=== PATIENT | male | born 1960 | race Caucasian/White ===

== ENCOUNTER 2018-03-16 13:10 | Inpatient (IN) | payer SELFPAY ==
[~2018-03-16] VITALS: Ht 185.4 cm; Wt 84.5 kg
[2018-03-16] MEDS: METOPROLOL TARTRATE 25 MG TAB PO SCH (00:30)
[2018-03-16 14:00] LABS: BASOPHILS % (AUTO) 0.7 % (0.0-5.0); EOSINOPHILS % (AUTO) 0.6 % (0.0-8.0); HEMATOCRIT 38.8 % (42-54); LYMPHOCYTES % (AUTO) 9.5 % (21.0-51.0); MEAN CORPUSCULAR HEMOGLOBIN 26.2 pg (27.0-33.0); MEAN CORPUSCULAR HGB CONC 32.1 g/dL (32.0-36.0); MEAN CORPUSCULAR VOLUME 81.5 fL (79-99); MONOCYTES % (AUTO) 7.2 % (3.0-13.0); PLATELET COUNT (AUTO) 339 K/uL (130-400); RED BLOOD CELL COUNT(AUTO) 4.76 MIL/uL (4.50-6.20); RED CELL DISTRIBUTION WIDTH 17.9 % (11.0-15.5); WHITE BLOOD COUNT (AUTO) 11.8 K/uL (4.8-10.8)
[2018-03-16] MEDS ORDERED: FUROSEMIDE 10 MG/ML 4ML VIAL ONE (14:04)
[2018-03-16 14:09] LABS: CREATININE 0.9 mg/dL (0.5-1.5); POTASSIUM 4.1 mmol/L (3.5-5.1)
[2018-03-16 14:20] LABS: ALBUMIN 3.1 g/dL (3.5-5.0); BILIRUBIN,TOTAL 1.2 mg/dL (0.2-1.0); TOTAL PROTEIN, SERUM 7.7 g/dL (6.0-8.3)
[2018-03-16 14:37] LABS: INR 1.15 (0.85-1.15); PARTIAL THROMBOPLASTIN TIME 28.2 SEC (26.3-35.5)
[2018-03-16 14:42] LABS: B-TYPE NATRIURETIC PEPTIDE 573 pg/mL (0-100)
[2018-03-16] MEDS ORDERED: IOHEXOL 350 MG/ML 100ML INFUS..BTL IV ONE (16:22)
[2018-03-16] MEDS ORDERED: LEVOFLOXACIN 500 MG/D5W 100 ML 0 ML ONE (17:50)
[2018-03-16] MEDS ORDERED: LEVOFLOXACIN 500 MG/D5W 100 ML 100 ML IV SCH (18:45)
[2018-03-16] MEDS ORDERED: ONDANSETRON HCL 4 MG/2 ML VIAL IV PRN (18:45)
[2018-03-16] MEDS ORDERED: MORPHINE SULFATE 2 MG/ML 1ML SYG IV PRN (18:45)
[2018-03-16] MEDS ORDERED: LEVOFLOXACIN 500 MG/D5W 100 ML 100 ML ONE (19:46)
[2018-03-16] MEDS ORDERED: METOPROLOL TARTRATE 25 MG TAB ONE (19:47)
[2018-03-16] MEDS ORDERED: FUROSEMIDE 10 MG/ML 2ML VIAL IV SCH (20:00)
[2018-03-16] MEDS ORDERED: SODIUM CHLORIDE 0.9% 500ML 500 ML IV ONE (20:10)
[2018-03-16] MEDS ORDERED: METOPROLOL TARTRATE 1 MG/ML 5ML VIAL IV ONE (20:11)
[2018-03-16] MEDS ORDERED: DILTIAZEM 125MG+100 ML NS 125 ML IV SCH (21:00)
[2018-03-16] MEDS ORDERED: SODIUM CHLORIDE 0.9% 100 ML IV ONE (21:34)
[2018-03-16] MEDS ORDERED: AMIODARONE HCL 50 MG/ML 3 ML VIAL ONE (23:26)
[2018-03-16] MEDS ORDERED: SODIUM CHLORIDE 0.9% 1000ML 1,000 ML IV ONE (23:26)
[2018-03-16] MEDS ORDERED: DEXTROSE 5%-WATER 500 ML IV ONE (23:26)
[2018-03-17] VITALS (7 sets, daily range): BP systolic 105–120; BP diastolic 68–86
[2018-03-17] MEDS: IPRATROPIUM/ALBUTEROL SULFATE 3 ML SOLUTION IH SCH ×3 (00:41→11:49)
[2018-03-17] MEDS ORDERED: PHEN177L2 PO (01:23)
[2018-03-17] MEDS ORDERED: ALBU0.63 IH (01:25)
[2018-03-17] MEDS ORDERED: AMIODARONE HCL 150 MG in DEXTROSE 5%-WATER 100 ML IV SCH (03:45)
[2018-03-17] MEDS ORDERED: AMIODARONE HCL 900 MG in DEXTROSE 5%-WATER 500 ML IV SCH (03:45)
[2018-03-17 03:51] LABS: BASOPHILS % (AUTO) 0.7 % (0.0-5.0); EOSINOPHILS % (AUTO) 0.7 % (0.0-8.0); HEMATOCRIT 36.6 % (42-54); LYMPHOCYTES % (AUTO) 11.6 % (21.0-51.0); MEAN CORPUSCULAR HEMOGLOBIN 25.6 pg (27.0-33.0); MEAN CORPUSCULAR HGB CONC 31.7 g/dL (32.0-36.0); MEAN CORPUSCULAR VOLUME 80.8 fL (79-99); MONOCYTES % (AUTO) 8.5 % (3.0-13.0); NEUTROPHILS % (AUTO) 78.5 % (40.0-77.0); PLATELET COUNT (AUTO) 278 K/uL (130-400); RED BLOOD CELL COUNT(AUTO) 4.53 MIL/uL (4.50-6.20); RED CELL DISTRIBUTION WIDTH 18.1 % (11.0-15.5); WHITE BLOOD COUNT (AUTO) 10.7 K/uL (4.8-10.8)
[2018-03-17 04:07] LABS: CREATININE 0.8 mg/dL (0.5-1.5); MAGNESIUM 1.7 mg/dL (1.80-2.40); POTASSIUM 3.9 mmol/L (3.5-5.1)
[2018-03-17] MEDS: FUROSEMIDE 10 MG/ML 2ML VIAL IV SCH ×2 (08:52→21:00)
[2018-03-17] MEDS: METOPROLOL TARTRATE 25 MG TAB PO SCH ×2 (08:52→21:00)
[2018-03-17] MEDS: PANTOPRAZOLE SODIUM 40 MG TABLET.DR PO SCH (08:52)
[2018-03-17] MEDS: ASPIRIN 81 MG EC TAB PO SCH (08:52)
[2018-03-17] MEDS: ENOXAPARIN SODIUM 40 MG/0.4 ML SYRINGE SQ SCH (08:52)
[2018-03-17] MEDS ORDERED: MAGNESIUM 2GM PREMIX 50ML 50 ML IV PRN (10:15)
[2018-03-17] MEDS ORDERED: METH4TAB15 PO (10:48)
[2018-03-17] MEDS ORDERED: AZIT250T9 PO (10:48)
[2018-03-17] MEDS ORDERED: SODIUM CHLORIDE 0.9% 500ML 500 ML IV ONE (13:24)
[2018-03-17] MEDS: METHYLPREDNISOLONE SOD SUCC 40MG/ML 1ML IVP SCH ×2 (13:27→21:00)
[2018-03-17] MEDS: IPRATROPIUM 0.5 MG/2.5 ML INH IH SCH ×3 (13:52→21:59)
[2018-03-17] MEDS: DOXYCYCLINE 100MG+NS 250ML 250 ML IV SCH (13:58)
[2018-03-17] MEDS: AZTREONAM 1 GM VIAL IVP SCH ×2 (13:58→21:01)
[2018-03-17] MEDS: BUDESONIDE 0.5 MG/2 ML INH IH SCH (18:48)
[2018-03-17] MEDS: OSELTAMIVIR PHOSPHATE 75 MG CAP PO SCH (21:00)
[2018-03-17] MEDS: METOPROLOL TARTRATE 1 MG/ML 5ML VIAL IV PRN (23:04)
[2018-03-18] MEDS: DOXYCYCLINE 100MG+NS 250ML 250 ML IV SCH ×2 (00:39→12:38)
[2018-03-18] MEDS: IPRATROPIUM 0.5 MG/2.5 ML INH IH SCH ×6 (03:15→21:57)
[2018-03-18 04:11] VITALS: BP 110/83
[2018-03-18 04:17] LABS: BASOPHILS % (AUTO) 0.8 % (0.0-5.0); EOSINOPHILS % (AUTO) 0.1 % (0.0-8.0); HEMATOCRIT 40.2 % (42-54); LYMPHOCYTES % (AUTO) 7.8 % (21.0-51.0); MEAN CORPUSCULAR HEMOGLOBIN 26.3 pg (27.0-33.0); MEAN CORPUSCULAR HGB CONC 32.1 g/dL (32.0-36.0); MEAN CORPUSCULAR VOLUME 81.7 fL (79-99); MONOCYTES % (AUTO) 1.9 % (3.0-13.0); NEUTROPHILS % (AUTO) 89.4 % (40.0-77.0); PLATELET COUNT (AUTO) 349 K/uL (130-400); RED BLOOD CELL COUNT(AUTO) 4.92 MIL/uL (4.50-6.20); RED CELL DISTRIBUTION WIDTH 18.1 % (11.0-15.5); WHITE BLOOD COUNT (AUTO) 7.1 K/uL (4.8-10.8)
[2018-03-18 04:27] LABS: INR 1.12 (0.85-1.15); PARTIAL THROMBOPLASTIN TIME 28.2 SEC (26.3-35.5); PROTHROMBIN TIME 11.7 SEC (9.6-11.6)
[2018-03-18 04:35] LABS: ALBUMIN 2.6 g/dL (3.5-5.0); BILIRUBIN,TOTAL 0.6 mg/dL (0.2-1.0); CREATININE 0.9 mg/dL (0.5-1.5); PHOSPHORUS 3.1 mg/dL (2.5-4.9); POTASSIUM 4.6 mmol/L (3.5-5.1); TOTAL PROTEIN, SERUM 7.2 g/dL (6.0-8.3)
[2018-03-18 04:37] LABS: B-TYPE NATRIURETIC PEPTIDE 644 pg/mL (0-100)
[2018-03-18 05:03] LABS: ABG BASE EXCESS 5.1 mmol/L (-2.0-3.0); ABG OXYGEN SATURATION 95.3 % (95.0-99.0); ABG PCO2 45 mmHg (35-48)
[2018-03-18] MEDS: AZTREONAM 1 GM VIAL IVP SCH ×3 (05:40→20:35)
[2018-03-18] MEDS: BUDESONIDE 0.5 MG/2 ML INH IH SCH ×2 (06:23→18:16)
[2018-03-18 07:00] VITALS: BP 116/74
[2018-03-18] MEDS: METHYLPREDNISOLONE SOD SUCC 40MG/ML 1ML IVP SCH ×3 (08:28→20:36)
[2018-03-18] MEDS: OSELTAMIVIR PHOSPHATE 75 MG CAP PO SCH ×2 (08:28→20:36)
[2018-03-18] MEDS: METOPROLOL TARTRATE 25 MG TAB PO SCH ×2 (08:28→20:36)
[2018-03-18] MEDS: ASPIRIN 81 MG EC TAB PO SCH (08:28)
[2018-03-18] MEDS: FUROSEMIDE 10 MG/ML 2ML VIAL IV SCH ×2 (08:28→20:35)
[2018-03-18] MEDS: PANTOPRAZOLE SODIUM 40 MG TABLET.DR PO SCH (08:28)
[2018-03-18] MEDS: ENOXAPARIN SODIUM 40 MG/0.4 ML SYRINGE SQ SCH (08:29)
[2018-03-18] MEDS: METOPROLOL TARTRATE 1 MG/ML 5ML VIAL IV PRN (09:26)
[2018-03-18 11:00] VITALS: BP 110/84
[2018-03-18 16:00] VITALS: BP 95/73
[2018-03-18 19:31] VITALS: BP 106/73
[2018-03-18] MEDS: FAMOTIDINE 20MG TAB 20 MG TAB PO SCH (20:36)
[2018-03-18 23:26] VITALS: BP 110/74
[2018-03-19] MEDS: DOXYCYCLINE 100MG+NS 250ML 250 ML IV SCH ×2 (00:55→11:36)
[2018-03-19] MEDS: DIGOXIN 250 MCG/ML 2ML AMP IV SCH ×4 (00:55→19:40)
[2018-03-19] MEDS: IPRATROPIUM 0.5 MG/2.5 ML INH IH SCH ×5 (02:28→21:21)
[2018-03-19 03:43] VITALS: BP 120/73
[2018-03-19 04:17] LABS: MEAN CORPUSCULAR HEMOGLOBIN 25.5 pg (27.0-33.0); MEAN CORPUSCULAR HGB CONC 31.5 g/dL (32.0-36.0); MEAN CORPUSCULAR VOLUME 80.8 fL (79-99); PLATELET COUNT (AUTO) 315 K/uL (130-400); RED BLOOD CELL COUNT(AUTO) 4.95 MIL/uL (4.50-6.20); RED CELL DISTRIBUTION WIDTH 18.1 % (11.0-15.5); WHITE BLOOD COUNT (AUTO) 14.3 K/uL (4.8-10.8)
[2018-03-19 04:24] LABS: CREATININE 0.8 mg/dL (0.5-1.5); MAGNESIUM 1.8 mg/dL (1.80-2.40); PHOSPHORUS 3.2 mg/dL (2.5-4.9); POTASSIUM 4.2 mmol/L (3.5-5.1)
[2018-03-19] MEDS: METHYLPREDNISOLONE SOD SUCC 40MG/ML 1ML IVP SCH ×3 (05:22→20:12)
[2018-03-19] MEDS: AZTREONAM 1 GM VIAL IVP SCH ×3 (05:22→20:13)
[2018-03-19] MEDS: BUDESONIDE 0.5 MG/2 ML INH IH SCH ×2 (06:04→21:22)
[2018-03-19 07:00] VITALS: BP 124/79
[2018-03-19] MEDS: FUROSEMIDE 10 MG/ML 2ML VIAL IV SCH ×2 (08:27→20:13)
[2018-03-19] MEDS: ENOXAPARIN SODIUM 40 MG/0.4 ML SYRINGE SQ SCH (08:28)
[2018-03-19] MEDS: ASPIRIN 81 MG EC TAB PO SCH (08:29)
[2018-03-19] MEDS: PANTOPRAZOLE SODIUM 40 MG TABLET.DR PO SCH (08:29)
[2018-03-19] MEDS: DIGOXIN 125 MCG TABLET PO SCH (08:29)
[2018-03-19] MEDS: OSELTAMIVIR PHOSPHATE 75 MG CAP PO SCH ×2 (08:29→20:13)
[2018-03-19] MEDS: FAMOTIDINE 20MG TAB 20 MG TAB PO SCH ×2 (08:29→20:14)
[2018-03-19] MEDS: METOPROLOL TARTRATE 25 MG TAB PO SCH (08:29)
[2018-03-19 11:00] VITALS: BP 117/71
[2018-03-19] MEDS ORDERED: METOPROLOL TARTRATE 25 MG TAB PO SCH (14:00)
[2018-03-19 16:00] VITALS: BP 112/75
[2018-03-19 19:35] VITALS: BP 112/78
[2018-03-19 23:53] VITALS: BP 125/79
[2018-03-20] MEDS: DOXYCYCLINE 100MG+NS 250ML 250 ML IV SCH ×2 (01:16→11:45)
[2018-03-20 03:45] LABS: BASOPHILS % (AUTO) 0.4 % (0.0-5.0); MEAN CORPUSCULAR HEMOGLOBIN 26.1 pg (27.0-33.0); MEAN CORPUSCULAR HGB CONC 31.9 g/dL (32.0-36.0); MEAN CORPUSCULAR VOLUME 81.7 fL (79-99); MONOCYTES % (AUTO) 2.7 % (3.0-13.0); NEUTROPHILS % (AUTO) 92.9 % (40.0-77.0); PLATELET COUNT (AUTO) 327 K/uL (130-400); RED BLOOD CELL COUNT(AUTO) 5.39 MIL/uL (4.50-6.20); RED CELL DISTRIBUTION WIDTH 18.4 % (11.0-15.5); WHITE BLOOD COUNT (AUTO) 14.2 K/uL (4.8-10.8)
[2018-03-20 03:55] VITALS: BP 123/91
[2018-03-20 04:00] LABS: POTASSIUM 4.6 mmol/L (3.5-5.1)
[2018-03-20] MEDS: AZTREONAM 1 GM VIAL IVP SCH ×3 (04:30→21:09)
[2018-03-20] MEDS: METHYLPREDNISOLONE SOD SUCC 40MG/ML 1ML IVP SCH ×3 (04:30→21:07)
[2018-03-20] MEDS: IPRATROPIUM 0.5 MG/2.5 ML INH IH SCH ×3 (05:51→22:22)
[2018-03-20] MEDS: BUDESONIDE 0.5 MG/2 ML INH IH SCH ×2 (06:02→22:22)
[2018-03-20 07:00] VITALS: BP 120/91
[2018-03-20] MEDS ORDERED: DIGOXIN 250 MCG/ML 2ML AMP IV SCH ×2 (08:15)
[2018-03-20] MEDS: DIGOXIN 125 MCG TABLET PO SCH (08:32)
[2018-03-20] MEDS: PANTOPRAZOLE SODIUM 40 MG TABLET.DR PO SCH (08:32)
[2018-03-20] MEDS: ASPIRIN 81 MG EC TAB PO SCH (08:33)
[2018-03-20] MEDS: OSELTAMIVIR PHOSPHATE 75 MG CAP PO SCH ×2 (08:33→21:08)
[2018-03-20] MEDS: FUROSEMIDE 10 MG/ML 2ML VIAL IV SCH (08:33)
[2018-03-20] MEDS: FAMOTIDINE 20MG TAB 20 MG TAB PO SCH ×2 (08:33→21:08)
[2018-03-20] MEDS: ENOXAPARIN SODIUM 40 MG/0.4 ML SYRINGE SQ SCH (08:34)
[2018-03-20] MEDS: METOPROLOL TARTRATE 25 MG TAB PO SCH ×3 (08:45→21:08)
[2018-03-20 11:00] VITALS: BP 106/56
[2018-03-20 16:00] VITALS: BP 115/65
[2018-03-20 19:23] VITALS: BP 100/55
[2018-03-20] MEDS: DIGOXIN 250 MCG/ML 2ML AMP IV SCH ×2 (21:08)
[2018-03-20 23:23] VITALS: BP 117/84
[2018-03-21] MEDS: DOXYCYCLINE 100MG+NS 250ML 250 ML IV SCH ×2 (00:38→11:55)
[2018-03-21 03:15] VITALS: BP 124/89
[2018-03-21 04:34] LABS: BASOPHILS % (AUTO) 0.2 % (0.0-5.0); HEMATOCRIT 43.3 % (42-54); LYMPHOCYTES % (AUTO) 3.9 % (21.0-51.0); MEAN CORPUSCULAR HEMOGLOBIN 26.4 pg (27.0-33.0); MEAN CORPUSCULAR HGB CONC 31.8 g/dL (32.0-36.0); MEAN CORPUSCULAR VOLUME 82.8 fL (79-99); MONOCYTES % (AUTO) 3.9 % (3.0-13.0); NUCLEATED RED BLOOD CELLS 0.1 % (0.0-0.19); PLATELET COUNT (AUTO) 311 K/uL (130-400); RED BLOOD CELL COUNT(AUTO) 5.23 MIL/uL (4.50-6.20); RED CELL DISTRIBUTION WIDTH 18.4 % (11.0-15.5); WHITE BLOOD COUNT (AUTO) 13.8 K/uL (4.8-10.8)
[2018-03-21] MEDS: AZTREONAM 1 GM VIAL IVP SCH ×3 (04:41→20:12)
[2018-03-21] MEDS: METHYLPREDNISOLONE SOD SUCC 40MG/ML 1ML IVP SCH ×3 (04:41→20:12)
[2018-03-21 04:51] LABS: CREATININE 0.8 mg/dL (0.5-1.5); POTASSIUM 4.3 mmol/L (3.5-5.1); THYROID STIMULATING HORMONE 1.05 uIU/mL (0.36-3.74)
[2018-03-21] MEDS: IPRATROPIUM 0.5 MG/2.5 ML INH IH SCH ×3 (05:58→23:03)
[2018-03-21] MEDS: BUDESONIDE 0.5 MG/2 ML INH IH SCH ×2 (06:15→19:25)
[2018-03-21] MEDS ORDERED: BENZOCAINE 20% 57 GM SPRAY TP SCH (07:30)
[2018-03-21] MEDS ORDERED: MIDAZOLAM HCL 1 MG/ML 2ML VIAL IVP ONE (07:30)
[2018-03-21] MEDS ORDERED: FENTANYL CITRATE PF 50 MCG/1 ML 2ML VIAL IVP ONE (07:30)
[2018-03-21 07:46] VITALS: BP 123/71
[2018-03-21] MEDS: PANTOPRAZOLE SODIUM 40 MG TABLET.DR PO SCH (11:50)
[2018-03-21] MEDS: METOPROLOL TARTRATE 25 MG TAB PO SCH ×3 (11:50→20:13)
[2018-03-21] MEDS: ENOXAPARIN SODIUM 40 MG/0.4 ML SYRINGE SQ SCH (11:50)
[2018-03-21] MEDS: OSELTAMIVIR PHOSPHATE 75 MG CAP PO SCH ×2 (11:50→20:12)
[2018-03-21 11:51] VITALS: BP 128/85
[2018-03-21] MEDS: FUROSEMIDE 40 MG TABLET PO SCH (11:51)
[2018-03-21] MEDS: DIGOXIN 125 MCG TABLET PO SCH (11:51)
[2018-03-21] MEDS: FAMOTIDINE 20MG TAB 20 MG TAB PO SCH ×2 (11:51→20:13)
[2018-03-21] MEDS: LIDOCAINE HCL 2% VISCOUS 15 ML UDCUP PO SCH (11:52)
[2018-03-21] MEDS: ASPIRIN 81 MG EC TAB PO SCH (11:52)
[2018-03-21 16:58] VITALS: BP 113/78
[2018-03-21 19:00] VITALS: BP 109/70
[2018-03-21 23:00] VITALS: BP 117/74
[2018-03-22] MEDS: DOXYCYCLINE 100MG+NS 250ML 250 ML IV SCH ×2 (01:47→13:41)
[2018-03-22] MEDS: DIGOXIN 250 MCG/ML 2ML AMP IV SCH (01:57)
[2018-03-22 04:00] VITALS: BP 122/82
[2018-03-22 04:06] LABS: HEMATOCRIT 42.9 % (42-54); MEAN CORPUSCULAR HEMOGLOBIN 26.5 pg (27.0-33.0); MEAN CORPUSCULAR HGB CONC 32.2 g/dL (32.0-36.0); MEAN CORPUSCULAR VOLUME 82.3 fL (79-99); PLATELET COUNT (AUTO) 324 K/uL (130-400); RED BLOOD CELL COUNT(AUTO) 5.22 MIL/uL (4.50-6.20); RED CELL DISTRIBUTION WIDTH 18.7 % (11.0-15.5); WHITE BLOOD COUNT (AUTO) 14.5 K/uL (4.8-10.8)
[2018-03-22 04:12] LABS: CREATININE 0.9 mg/dL (0.5-1.5); MAGNESIUM 1.9 mg/dL (1.80-2.40); POTASSIUM 4.6 mmol/L (3.5-5.1)
[2018-03-22 04:24] LABS: B-TYPE NATRIURETIC PEPTIDE 378 pg/mL (0-100)
[2018-03-22] MEDS: METHYLPREDNISOLONE SOD SUCC 40MG/ML 1ML IVP SCH (04:50)
[2018-03-22] MEDS: AZTREONAM 1 GM VIAL IVP SCH ×3 (04:50→21:36)
[2018-03-22] MEDS: IPRATROPIUM 0.5 MG/2.5 ML INH IH SCH ×3 (06:08→21:19)
[2018-03-22] MEDS: BUDESONIDE 0.5 MG/2 ML INH IH SCH ×2 (06:08→21:19)
[2018-03-22] MEDS: LIDOCAINE HCL 2% VISCOUS 15 ML UDCUP PO SCH (06:22)
[2018-03-22 07:52] VITALS: BP 125/73
[2018-03-22] MEDS: ASPIRIN 81 MG EC TAB PO SCH (09:00)
[2018-03-22] MEDS: ENOXAPARIN SODIUM 40 MG/0.4 ML SYRINGE SQ SCH (09:00)
[2018-03-22] MEDS: OSELTAMIVIR PHOSPHATE 75 MG CAP PO SCH (10:00)
[2018-03-22] MEDS: METOPROLOL TARTRATE 25 MG TAB PO SCH ×3 (10:00→21:36)
[2018-03-22] MEDS: PANTOPRAZOLE SODIUM 40 MG TABLET.DR PO SCH (10:01)
[2018-03-22] MEDS: FUROSEMIDE 40 MG TABLET PO SCH (10:01)
[2018-03-22] MEDS: FAMOTIDINE 20MG TAB 20 MG TAB PO SCH ×2 (10:01→21:36)
[2018-03-22] MEDS: DIGOXIN 125 MCG TABLET PO SCH (10:01)
[2018-03-22 12:05] VITALS: BP 131/89
[2018-03-22 16:49] VITALS: BP 110/73
[2018-03-22 20:00] VITALS: BP 112/62
[2018-03-22 23:00] VITALS: BP 124/73
[2018-03-23] VITALS (22 sets, daily range): BP systolic 96–136; BP diastolic 57–86
[2018-03-23] MEDS: DIGOXIN 250 MCG/ML 2ML AMP IV SCH (01:47)
[2018-03-23] MEDS: DOXYCYCLINE 100MG+NS 250ML 250 ML IV SCH ×2 (01:47→13:00)
[2018-03-23] MEDS: AZTREONAM 1 GM VIAL IVP SCH ×3 (05:06→21:00)
[2018-03-23] MEDS: IPRATROPIUM 0.5 MG/2.5 ML INH IH SCH ×3 (06:21→21:59)
[2018-03-23] MEDS: BUDESONIDE 0.5 MG/2 ML INH IH SCH ×2 (06:21→21:59)
[2018-03-23] MEDS: LIDOCAINE HCL 2% VISCOUS 15 ML UDCUP PO SCH (06:33)
[2018-03-23] MEDS ORDERED: PROPOFOL 1000 MG/100 ML 100 ML IV ONE (11:09)
[2018-03-23] MEDS ORDERED: ATROPINE SULFATE 0.1 MG/ML 10 ML SYG IVP ONE (11:09)
[2018-03-23] MEDS ORDERED: LIDOCAINE HCL-MPF 2% 5ML VIAL ONE (11:10)
[2018-03-23] MEDS ORDERED: GLYCOPYRROLATE 0.2 MG/ML 5 ML VIAL ONE (11:10)
[2018-03-23] MEDS ORDERED: SUCCINYLCHOLINE CHLORIDE 20 MG/ML 10 ML VIAL ONE (11:22)
[2018-03-23] MEDS ORDERED: EPINEPHRINE 1 MG/ML AMPULE ONE (11:44)
[2018-03-23] MEDS ORDERED: EPHEDRINE SULFATE 50 MG/ML AMPULE ONE (11:49)
[2018-03-23] MEDS ORDERED: MEPERIDINE-PF 25 MG/ML SYG ONE (12:09)
[2018-03-23] MEDS: ASPIRIN 81 MG EC TAB PO SCH (12:59)
[2018-03-23] MEDS: FUROSEMIDE 40 MG TABLET PO SCH (12:59)
[2018-03-23] MEDS: FAMOTIDINE 20MG TAB 20 MG TAB PO SCH ×2 (12:59→21:01)
[2018-03-23] MEDS: PANTOPRAZOLE SODIUM 40 MG TABLET.DR PO SCH (12:59)
[2018-03-23] MEDS: DIGOXIN 125 MCG TABLET PO SCH (13:00)
[2018-03-23] MEDS: METOPROLOL TARTRATE 25 MG TAB PO SCH ×3 (13:00→21:01)
[2018-03-23] MEDS: PREDNISONE 10 MG TABLET PO SCH (13:00)
[2018-03-23] MEDS: ENOXAPARIN SODIUM 40 MG/0.4 ML SYRINGE SQ SCH (13:01)
[2018-03-23 18:54] LABS: APPEARANCE BODY FLUID SLIGHTLY CLOUDY (CLEAR); COLOR,BODY FLUID COLORLESS (LT YELLOW); SPECIMENTYPE,BODY FLUID WASHINGS; TOTAL VOLUME,BODY FLUID 16 mL
[2018-03-23 18:57] LABS: BODY FLUID RBC 13 /cu. mm.; BODY FLUID WBC 84 /cu. mm.
[2018-03-23 19:17] LABS: BF EOSINOPHIL 6 %; BF LYMPHOCYTE 3 %; BF MESOTHELIAL 1 %; BF MONOCYTE 1 %
[2018-03-24] VITALS: BP 120/73
[2018-03-24] MEDS: DOXYCYCLINE 100MG+NS 250ML 250 ML IV SCH (01:04)
[2018-03-24 04:21] VITALS: BP 115/73
[2018-03-24] MEDS: AZTREONAM 1 GM VIAL IVP SCH (06:13)
[2018-03-24] MEDS: BUDESONIDE 0.5 MG/2 ML INH IH SCH ×2 (06:50→21:29)
[2018-03-24] MEDS: IPRATROPIUM 0.5 MG/2.5 ML INH IH SCH ×3 (06:50→21:29)
[2018-03-24] MEDS: PREDNISONE 10 MG TABLET PO SCH (07:29)
[2018-03-24] MEDS: FAMOTIDINE 20MG TAB 20 MG TAB PO SCH ×2 (07:29→22:12)
[2018-03-24] MEDS: PANTOPRAZOLE SODIUM 40 MG TABLET.DR PO SCH (07:29)
[2018-03-24] MEDS: FUROSEMIDE 40 MG TABLET PO SCH (07:29)
[2018-03-24] MEDS: DIGOXIN 125 MCG TABLET PO SCH (07:29)
[2018-03-24] MEDS: METOPROLOL TARTRATE 25 MG TAB PO SCH ×3 (07:29→22:12)
[2018-03-24] MEDS: ASPIRIN 81 MG EC TAB PO SCH (07:29)
[2018-03-24] MEDS: ENOXAPARIN SODIUM 40 MG/0.4 ML SYRINGE SQ SCH (07:33)
[2018-03-24 07:41] VITALS: BP 124/69
[2018-03-24] MEDS: AMOXICILLIN/POTASSIUM CLAV 875-125 TABLET PO SCH ×2 (09:14→22:11)
[2018-03-24 11:38] VITALS: BP 103/57
[2018-03-24 16:24] VITALS: BP 106/68
[2018-03-24 19:40] VITALS: BP 115/73
[2018-03-24] MEDS: APIXABAN 5 MG TABLET PO SCH (22:11)
[2018-03-25] VITALS: BP 124/81
[2018-03-25 04:00] VITALS: BP 123/74
[2018-03-25] MEDS: IPRATROPIUM 0.5 MG/2.5 ML INH IH SCH ×2 (06:48→13:44)
[2018-03-25] MEDS: BUDESONIDE 0.5 MG/2 ML INH IH SCH (06:48)
[2018-03-25 07:16] VITALS: BP 115/70
[2018-03-25] MEDS ORDERED: LISINOPRIL 5 MG TABLET PO SCH (09:00)
[2018-03-25] MEDS ORDERED: METO25 PO (10:22)
[2018-03-25] MEDS ORDERED: LISI-617 PO (10:22)
[2018-03-25] MEDS ORDERED: PRED10B PO (10:22)
[2018-03-25] MEDS ORDERED: LEVO500T2 PO (10:22)
[2018-03-25] MEDS ORDERED: AEC81 PO (10:22)
[2018-03-25] MEDS ORDERED: FURO40TA7 PO (10:22)
[2018-03-25] MEDS ORDERED: DIGO125T87 PO (10:22)
[2018-03-25] MEDS ORDERED: APIX5TAB PO (10:22)
[2018-03-25] MEDS: METOPROLOL TARTRATE 25 MG TAB PO SCH (10:46)
[2018-03-25] MEDS: PANTOPRAZOLE SODIUM 40 MG TABLET.DR PO SCH (10:47)
[2018-03-25] MEDS: FUROSEMIDE 40 MG TABLET PO SCH (10:47)
[2018-03-25] MEDS: FAMOTIDINE 20MG TAB 20 MG TAB PO SCH (10:47)
[2018-03-25] MEDS: APIXABAN 5 MG TABLET PO SCH (10:48)
[2018-03-25] MEDS: ASPIRIN 81 MG EC TAB PO SCH (10:49)
[2018-03-25] MEDS: PREDNISONE 10 MG TABLET PO SCH (10:49)
[2018-03-25] MEDS: AMOXICILLIN/POTASSIUM CLAV 875-125 TABLET PO SCH (10:49)
[2018-03-25] MEDS: DIGOXIN 125 MCG TABLET PO SCH (10:49)
[2018-03-25 11:22] VITALS: BP 117/70
[2018-03-25 16:00] VITALS: BP 91/64
== END 2018-03-25 19:00 | disposition home or self-care (01) | DRG 166 ==
LOC: EDH 13:10 → EDHIP 13:11 → 3DH 21:43 → 2CH 23:25 → 2DH 03-17 15:25
PROVIDERS: ADMIT Hospitalist; ATTEND Hospitalist
PROC: 5A2204Z Restoration of Cardiac Rhythm, Single (ICD-10-PCS; 2018-03-21)
PROC: 0BBC8ZX Excision of Right Upper Lung Lobe, Via Natural or Artificial Opening Endoscopic, Diagnostic (ICD-10-PCS; principal; 2018-03-23)
PROC: 0B9C8ZZ Drainage of Right Upper Lung Lobe, Via Natural or Artificial Opening Endoscopic (ICD-10-PCS; 2018-03-23)
PROC: 0BDC8ZX Extraction of Right Upper Lung Lobe, Via Natural or Artificial Opening Endoscopic, Diagnostic (ICD-10-PCS; 2018-03-23)
DX: C34.90 Malignant neoplasm of unspecified part of unspecified bronchus or lung (principal); I50.43 Acute on chronic combined systolic (congestive) and diastolic (congestive) heart failure; J96.21 Acute and chronic respiratory failure with hypoxia; J18.9 Pneumonia, unspecified organism; J44.0 Chronic obstructive pulmonary disease with (acute) lower respiratory infection; E44.1 Mild protein-calorie malnutrition; J44.1 Chronic obstructive pulmonary disease with (acute) exacerbation; J98.11 Atelectasis; I48.3 Typical atrial flutter; I42.0 Dilated cardiomyopathy; I48.91 Unspecified atrial fibrillation; E83.42 Hypomagnesemia; R59.9 Enlarged lymph nodes, unspecified; I25.10 Atherosclerotic heart disease of native coronary artery without angina pectoris; Z68.24 Body mass index [BMI] 24.0-24.9, adult; Z88.0 Allergy status to penicillin; Z74.01 Bed confinement status; Z79.82 Long term (current) use of aspirin; Z79.899 Other long term (current) drug therapy; Z87.01 Personal history of pneumonia (recurrent); Z87.891 Personal history of nicotine dependence; Z98.49 Cataract extraction status, unspecified eye
CPT/HCPCS: 36415; 36600; 71045; 71275; 80048; 80053; 82550; 82803; 83605; 83735; 83874; 83880; 84100; 84443; 84484; 85025; 85027; 85378; 85610; 85730; 87040; 87071; 87116; 87205; 87206; 87804; 88104; 88305; 88312; 89051; 92960; 93005; 93306; 93308; 93313; 93970; 94640; 94664; 99291; A4218; J0171; J0282; J0330; J0461; J1160; J1650; J1940; J1956; J2175; J2250; J2704; J2920; J3010; J3475; J3490; J7030; J7040; J7060; J7512; Q9967

== ENCOUNTER → 2020-01-31 | Outpatient (CLI) | payer MEDICAID ==
[~2020-01-31] MED LIST: DEXA4TAB PO; DIGO125T71 PO; METO25 PO
--- NOTE | 2020-01-31 11:00 | NUR ---
MBSS COMPLETED. +ASPIRATION WITH THIN AND PUREED TEXTURE. RECOMMEND NPO, ALTERNATE MEANS OF NUTRITION/HYDRATION. RECOMMENDATIONS: 1. GI CONSULT 2. SKILLED SPEECH THERAPY 2-3XWK 4WKS PROJECT ARCHIVIST PROVIDED RESULTS AND RECOMMENDATIONS VIA VERBAL AND WRITTEN MODALITY. ALL QUESTIONS ANSWERED AT THIS TIME. PROJECT ARCHIVIST PROVIDED EXTENSION IN CASE QUESTIONS OR CONCERNS ARISE. Addendum: 02/01/20 at 1037 by DARIAN PETEROSN, [facility] Amended: Links added.
== END | disposition home or self-care (01) ==
LOC: RAH 10:58
PROVIDERS: ATTEND Internal Medicine Gastroenterology
DX: R63.3 Feeding difficulties (principal); R13.12 Dysphagia, oropharyngeal phase
CPT/HCPCS: 74230; 92611